=== PATIENT | female | born 1985 | race Caucasian/White ===

== ENCOUNTER 2024-01-01 09:14 | Outpatient (CLI) | payer BC ==
[~2024-01-01 09:14] MED LIST: NO HOME MEDS
== END 2024-01-01 23:59 | disposition home or self-care (01) ==
LOC: MRI 09:14
PROVIDERS: ATTEND Family Medicine Sports Medicine
DX: S83.282A Other tear of lateral meniscus, current injury, left knee, initial encounter (principal); M25.562 Pain in left knee; M22.2X1 Patellofemoral disorders, right knee; M71.22 Synovial cyst of popliteal space [Baker], left knee; M25.462 Effusion, left knee; E66.9 Obesity, unspecified; X58.XXXA Exposure to other specified factors, initial encounter; Y93.89 Activity, other specified; Y92.89 Other specified places as the place of occurrence of the external cause; Y99.8 Other external cause status
CPT/HCPCS: 73721